=== PATIENT | male | born 1990 | race Caucasian/White ===

== ENCOUNTER 2019-01-22 21:17 | Emergency (ER) | payer MEDICAID ==
[~2019-01-22] VITALS: Ht 172.7 cm; Wt 137.7 kg
[2019-01-22 21:24] VITALS: BP 114/82
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
--- NOTE | 2019-01-22 22:45 | NUR ---
PT AMBULATED TO BED 07 WITH STEADY GAIT.
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
[2019-01-22] MEDS ORDERED: KETOROLAC 60 MG/2 ML VIAL IM ONE (23:00)
[2019-01-23 00:10] VITALS: BP 145/80
--- NOTE | 2019-01-23 00:10 | NUR ---
Patient discharged with v/s stable. Written and verbal after care instructions given and explained. Patient alert, oriented and verbalized understanding of instructions. Ambulatory with steady gait. All questions addressed prior to discharge. ID band removed. Patient advised to follow up with PMD. Rx of MOTRIN 800MG AND ZOFRAN 8MG given. PT ALSO PROVIDED WORK EXCUSE NOTE. Patient educated on indication of medication including possible reaction and side effects. Opportunity to ask questions provided and answered.
== END 2019-01-23 00:10 | disposition home or self-care (01) ==
LOC: MED 21:17
DX: R51 Headache (principal); R42 Dizziness and giddiness; R11.2 Nausea with vomiting, unspecified; Z88.1 Allergy status to other antibiotic agents
CPT/HCPCS: 96372; 99283; J1885

== ENCOUNTER 2019-01-30 18:28 | Emergency (ER) | payer MEDICAID ==
[~2019-01-30] VITALS: Ht 172.7 cm; Wt 138.8 kg
[2019-01-30 18:49] VITALS: BP 112/90
--- NOTE | 2019-01-30 19:50 | NUR ---
PT AMBULATED TO BED #10
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
[2019-01-30] MEDS ORDERED: SILVER SULFADIAZINE 1% 50 GM JAR TP ONE (20:35)
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
[2019-01-30 21:06] VITALS: BP 132/82
--- NOTE | 2019-01-30 21:06 | NUR ---
Patient discharged with v/s stable. Written and verbal after care instructions given and explained. Patient alert, oriented and verbalized understanding of instructions. Ambulatory with steady gait. All questions addressed prior to discharge. ID band removed. Patient advised to follow up with PMD. Rx of BATRIM DS, BACITRACIN OINTMENT given. Patient educated on indication of medication including possible reaction and side effects. Opportunity to ask questions provided and answered.
== END 2019-01-30 21:06 | disposition home or self-care (01) ==
LOC: MED 18:28
DX: T24.201A Burn of second degree of unspecified site of right lower limb, except ankle and foot, initial encounter (principal); Z88.1 Allergy status to other antibiotic agents; X19.XXXA Contact with other heat and hot substances, initial encounter; Y93.55 Activity, bike riding; Y92.89 Other specified places as the place of occurrence of the external cause; Y99.8 Other external cause status
CPT/HCPCS: 16020; 99284

== ENCOUNTER 2019-07-21 16:07 | Emergency (ER) | payer MEDICAID, OTHER ==
[~2019-07-21] VITALS: Ht 172.7 cm; Wt 142.9 kg
[2019-07-21 16:15] VITALS: BP 161/97
--- NOTE | 2019-07-21 16:18 | NUR ---
ambulated to bed 03
[2019-07-21] MEDS ORDERED: ONDANSETRON 4 MG ODT PO ONE (17:10)
[2019-07-21] MEDS ORDERED: KETOROLAC 30 MG/ML VIAL IM ONE (17:10)
[2019-07-21 17:26] VITALS: BP 134/78
--- NOTE | 2019-07-21 17:27 | NUR ---
Stable. VSS. Afebrile. States that he feels much better. PA has reassessed and Dc'd home. To exit.
== END 2019-07-21 17:27 | disposition home or self-care (01) ==
LOC: MED 16:07
DX: J10.1 Influenza due to other identified influenza virus with other respiratory manifestations (principal); Z88.1 Allergy status to other antibiotic agents
CPT/HCPCS: 87804; 96372; 99283; J1885; Q0162